=== PATIENT | female | born 1970 | race Caucasian/White ===

== ENCOUNTER 2017-10-23 12:38 | Emergency (ER) | payer SELFPAY, OTHER ==
[2017-10-23] MEDS: predniSONE 20 MG TAB PO (15:24)
[2017-10-23] MEDS: IPRATROPIUM (NEB) 0.5 MG/2.5 ML AMP HHN (15:27)
[2017-10-23] MEDS: ALBUTEROL 0.083% (NEB) 2.5 MG/3 ML AMP HHN (15:27)
== END 2017-10-23 16:38 | disposition home or self-care (01) ==
LOC: FTE 12:38
DX: S99.922A Unspecified injury of left foot, initial encounter (principal); J45.901 Unspecified asthma with (acute) exacerbation; F17.210 Nicotine dependence, cigarettes, uncomplicated; R05 Cough; W20.8XXA Other cause of strike by thrown, projected or falling object, initial encounter; Y92.9 Unspecified place or not applicable
CPT/HCPCS: 73630; 73630-LT; 94664; 99284-25

== ENCOUNTER 2017-11-03 14:10 | Emergency (ER) | payer BC ==
[2017-11-03] MEDS: DEXAMETHASONE 10 MG/ML 1 ML INJ IM (16:28)
[2017-11-03] MEDS: ALBUTEROL 0.083% (NEB) 2.5 MG/3 ML AMP HHN ×2 (16:43→17:43)
[2017-11-03] MEDS: IPRATROPIUM (NEB) 0.5 MG/2.5 ML AMP HHN (16:43)
== END 2017-11-03 18:58 | disposition home or self-care (01) ==
LOC: FTE 14:10
DX: J20.9 Acute bronchitis, unspecified (principal); J45.901 Unspecified asthma with (acute) exacerbation; F17.210 Nicotine dependence, cigarettes, uncomplicated
CPT/HCPCS: 71045; 94640; 94664; 96372; 99284-25

== ENCOUNTER 2018-10-04 14:41 | Emergency (ER) | payer BC ==
[2018-10-04 17:31] LABS: ADD MAN DIFF? NO
[2018-10-04] MEDS: ONDANSETRON 4 MG INJ IV (17:31)
[2018-10-04] MEDS: morphine 4 MG/ML VIAL IV ×2 (17:31→18:28)
[2018-10-04 17:33] LABS: WHITE BLOOD COUNT 10.7 10^3/ul (4.8-10.8)
[2018-10-04 17:33] LABS: BASOPHILS % 0.4 % (0.0-2.0); EOSINOPHILS # 0.1 10^3/ul (0.0-0.5); EOSINOPHILS % 1.2 % (0.0-7.0); HEMATOCRIT 42.8 % (37.0-47.0); HEMOGLOBIN 14.1 g/dl (12.0-16.0); LYMPHOCYTES # 1.4 10^3/ul (0.8-2.9); LYMPHOCYTES % 13.3 % (15.0-51.0); MEAN CORPUSCULAR HEMOGLOBIN 29.7 pg (29.0-33.0); MEAN CORPUSCULAR HGB CONC 32.9 g/dl (32.0-37.0); MEAN CORPUSCULAR VOLUME 90.3 fl (82.0-101.0); MEAN PLATELET VOLUME 10.1 fl (7.4-10.4); MONOCYTE # 0.5 10^3/ul (0.3-0.9); MONOCYTES % 4.9 % (0.0-11.0); NEUTROPHIL # 8.5 10^3/ul (1.6-7.5); NEUTROPHILS % 79.9 % (39.0-77.0); PLATELET COUNT 201 10^3/UL (140-415); RED BLOOD COUNT 4.74 10^6/ul (4.20-5.40); RED CELL DISTRIBUTION WIDTH 13.3 % (11.5-14.5)
[2018-10-04 17:38] LABS: ADD UMIC YES; UR ASCORBIC ACID NEGATIVE (NEGATIVE); UR BACTERIA FEW /HPF (NONE SEEN); UR BILIRUBIN (Dip) NEGATIVE (NEGATIVE); UR BLOOD (Dip) NEGATIVE (NEGATIVE); UR CLARITY CLOUDY (CLEAR); UR COLOR AMBER (YELLOW); UR GLUCOSE (Dip) NEGATIVE (NEGATIVE); UR KETONES (Dip) TRACE mg/dL (NEGATIVE); UR LEUKOCYTE ESTERASE (Dip) NEGATIVE Leu/ul (NEGATIVE); UR MUCUS MANY /HPF (NONE SEEN); UR NITRITE (Dip) NEGATIVE (NEGATIVE); UR RBC 1 /HPF (0-5); UR SPECIFIC GRAVITY (Dip) 1.025 (1.003-1.030); UR SQUAMOUS EPITHELIAL CELL MODERATE /HPF (FEW); UR TOTAL PROTEIN (Dip) NEGATIVE (NEGATIVE); UR UROBILINOGEN (Dip) 1+ mg/dL (NEGATIVE); UR WBC 4 /HPF (0-5)
[2018-10-04 17:53] LABS: ALANINE AMINOTRANSFERASE 31 IU/L (13-69); ALBUMIN 4.1 g/dl (3.3-4.9); ALBUMIN/GLOBULIN RATIO 1.41; ALKALINE PHOSPHATASE 88 IU/L (42-121); ANION GAP 11 (5-13); ASPARTATE AMINO TRANSFERASE 26 IU/L (15-46); BILIRUBIN,INDIRECT 0.4 mg/dl (0-1.1); BILIRUBIN,TOTAL 0.4 mg/dl (0.2-1.3); BLOOD UREA NITROGEN 9 mg/dl (7-20); CALCIUM 9.4 mg/dl (8.4-10.2); CARBON DIOXIDE 26 mmol/L (21-31); CHLORIDE 104 mmol/L (97-110); CREATININE 0.79 mg/dl (0.44-1.00); Estimated GFR > 60 mL/min (>60); GLUCOSE 132 mg/dl (70-220); LIPASE 41 U/L (23-300); POTASSIUM 3.8 mmol/L (3.5-5.1); SODIUM 141 mmol/L (135-144)
[2018-10-04 18:04] LABS: TROPONIN-I < 0.012 ng/ml (0.000-0.120)
== END 2018-10-04 20:23 | disposition home or self-care (01) ==
LOC: E/R 14:41
DX: K52.9 Noninfective gastroenteritis and colitis, unspecified (principal); J45.909 Unspecified asthma, uncomplicated; F17.210 Nicotine dependence, cigarettes, uncomplicated; I10 Essential (primary) hypertension
CPT/HCPCS: 36415; 74176; 80053; 81001; 83690; 84484; 84703; 85025; 93005; 96374; 96375; 99285-25